=== PATIENT | female | born 1980 | race Caucasian/White ===

== ENCOUNTER 2017-06-29 18:15 | Emergency (ER) | payer BC ==
--- NOTE | 2017-06-29 18:22 | PDOC ---
History of Present Illness - General History Source: Patient Exam Limitations: No Limitations - History of Present Illness Initial Comments: 06/29/17 18:32 The patient is a 37 year old female, with no significant past medical history, who presents to the emergency department with a dry cough and sore throat for the past 2 days. The patient reports that both of her children currently have strep throat, she reports that she [place] them [place] [facility] [place] today where both of them tested positive for strep throat. The patient states that there is no chance that she could be , she states that she has not been sexually active for 6 months. The patient denies fever, chills, nausea or vomiting. Allergies: Penicillin (Hives). Past Surgical History: None reported. Social History: Non-smoker. Denies alcohol or drug use. <Shelbi Lambert - Last Filed: 06/29/17 18:34> <Stephen Hernandez - Last Filed: 06/29/17 18:46> - General Chief Complaint: Cold Symptoms Stated Complaint: SORE THROAT DRY COUGH Time Seen by Provider: 06/29/17 18:19 Past History <Shelbi Lambert - Last Filed: 06/29/17 18:34> <Stephen Hernandez - Last Filed: 06/29/17 18:46> - Past Medical History Allergies/Adverse Reactions: Allergies Allergy/AdvReac Type Severity Reaction Status Date / Time amoxicillin Allergy Intermediate Hives Verified 06/29/17 18:17 Penicillins Allergy Intermediate Hives Verified 06/29/17 18:17 Home Medications: Ambulatory Orders Azithromycin 500 mg PO DAILY 5 Days #5 tablet 06/29/17 Ibuprofen [Advil -] 2 tab PO PRN 06/29/17 Review of Systems - Review of Systems Able to Perform ROS?: Yes Comments:: 06/29/17 18:22 A complete review of 10 out of 10 review of systems is taken and is negative apart from what is previously mentioned below and in the HPI. <Shelbi Lambert - Last Filed: 06/29/17 18:34> *Physical Exam - Physical Exam Comments: 06/29/17 18:34 Vitals: Triage vital signs reviewed. General Appearance: No acute distress, well nourished, well developed. Head: Atraumatic, normocephalic. Eyes: Pupils equal round reactive, extraocular movements intact. Nose: Nares patent bilaterally. No nasal congestion. Throat: Erythematous posterior oropharynx. Mucous membranes moist. Neck: Supple. No nuchal rigidity. Chest Wall: Nontender. Cardiac: Regular rate and rhythm. No murmurs, no rubs, no gallops. Lungs: Clear to auscultation bilaterally, good air movement bilaterally. Abdomen: Soft, nondistended, normal bowel sounds, nontender to palpation. Extremities: Full range of motion to all extremities, no cyanosis, clubbing, or edema. Skin: Warm and dry, no rashes or lesions, no petechiae. Neuro: AOX3. Cranial Nerves 2-12 grossly intact. Strength intact to all extremities. Sensation intact to all extremities. Normal gait. Psych: Normal mood, normal affect. <Shelbi Lambert - Last Filed: 06/29/17 18:34> Medical Decision Making - Medical Decision Making 06/29/17 18:42 Patient well-appearing no apparent distress has 2 children at home we will or positive for strep pharyngitis. Patient presents with same symptoms sore throat pain no runny nose no congestion no cough positive lymph nodes on examination Patient is penicillin ALLERGIC we'll treat with 5 day course of azithromycin. She'll return to the ED for any severe worsening symptoms or for any concerns, otherwise she'll follow up with her primary care provider this week. <Stephen Hernandez - Last Filed: 06/29/17 18:46> *DC/Admit/Observation/Transfer - Attestations Scribe Attestion: 06/29/17 18:22 Documentation prepared by Shelbi Lambert, acting as general medical practitioner for Stephen Hernandez MD. <Shelbi Lambert - Last Filed: 06/29/17 18:34> - Discharge Dispostion Admit: No <Stephen Hernandez - Last Filed: 06/29/17 18:46> Diagnosis at time of Disposition: Strep pharyngitis - Discharge Dispostion Condition at time of disposition: Stable - Patient Instructions Printed Discharge Instructions: Strep Throat Additional Instructions: Take amoxicillin as prescribed. Take Motrin as directed on package. Follow-up with your primary care provider if symptoms do not improve in 5 days return to the emergency department for any severe worsening symptoms or for any concerns.
[2017-06-29] MEDS ORDERED: KETOROLAC TROMETHAMINE 30 MG/1 ML VIAL IM ONE (18:26)
[2017-06-29 18:28] VITALS: BP 121/90; PULSE 87; TEMP 98; BMI 23.8
[2017-06-29] MEDS ORDERED: KETOROLAC TROMETHAMINE 30 MG/1 ML VIAL ONE (18:30)
== END 2017-06-29 19:27 | disposition home or self-care (01) ==
LOC: FER 18:15
PROC: 3E0233Z Introduction of Anti-inflammatory into Muscle, Percutaneous Approach (ICD-10-PCS; principal; 2017-06-29)
DX: J02.0 Streptococcal pharyngitis (principal)
CPT/HCPCS: 87070; 87077; 87430; 99281-25